=== PATIENT | female | born 1980 | race Caucasian/White ===

== ENCOUNTER 2020-12-22 17:03 | Emergency (ER) | payer BC ==
--- NOTE | 2020-12-22 22:17 | EDM.PDOC ---
ED HPI GENERAL MEDICAL PROBLEM - General Chief Complaint: ENT Problem Stated Complaint: PLUGGED EAR Time Seen by Provider: 12/22/20 21:58 Source of Information: Reports: Patient History Limitations: Reports: No Limitations - History of Present Illness INITIAL COMMENTS - FREE TEXT/NARRATIVE: Patient is a 40-year-old female presents today for right ear being clogged up. States that she has been cleaning it with a Q-tip central use peroxide feels that her ear is clogged and she is having difficulty hearing out of it. Also put a Q-tip and she denies putting any other object in there. She denies going swimming. Denies any drainage from the right ear. She denies any fever chills or other complaints. right ear Pain Score (Numeric/FACES): 3 - Related Data Allergies Allergy/AdvReac Type Severity Reaction Status Date / Time No Known Allergies Allergy Verified 12/22/20 17:31 Home Meds: Home Meds Losartan [Cozaar] 50 mg PO DAILY 12/22/20 [History] Semaglutide [Rybelsus] 7 mg PO DAILY 12/22/20 [History] metFORMIN [Glucophage XR] 4 tab PO DAILY 12/22/20 [History] Past Medical History - Past Health History Medical/Surgical History: Denies Medical/Surgical History Endocrine/Metabolic History: Reports: Diabetes, Type II - Infectious Disease History Infectious Disease History: Reports: None Social & Family History - Family History Family Medical History: No Pertinent Family History - Tobacco Use Tobacco Use Status *Q: Never Tobacco User - Caffeine Use Caffeine Use: Reports: Coffee - Recreational Drug Use Recreational Drug Use: No ED ROS ENT - Review of Systems Review Of Systems: See Below Constitutional: Reports: No Symptoms HEENT: Reports: Ear Pain Respiratory: Reports: No Symptoms Endocrine: Reports: No Symptoms GI/Abdominal: Reports: No Symptoms : Reports: No Symptoms Musculoskeletal: Reports: No Symptoms Skin: Reports: No Symptoms Neurological: Reports: No Symptoms Psychiatric: Reports: No Symptoms Hematologic/Lymphatic: Reports: No Symptoms Immunologic: Reports: No Symptoms ED EXAM, ENT - Physical Exam Exam: See Below Exam Limited By: No Limitations General Appearance: Alert, WD/WN, No Apparent Distress Eye Exam: Bilateral Eye: EOMI, PERRL Ears: Normal External Exam, Other (Q-tip blocking the right canal) Mouth/Throat: Normal Inspection, Normal Gums Head: Atraumatic Respiratory/Chest: No Respiratory Distress Extremities: Normal Inspection Neurological: Alert, Oriented, Normal Cognition, Normal Gait ED ENT PROCEDURES - Foreign Body Removal Indication:: Q-tip cotton in the right ear canal Consent Obtained: Patient Performing Doctor:: Orville Santiago Foreign Body Other Location Comment:: right ear Anesthesia Type: None Complications: No Course - Vital Signs Last Recorded V/S: Last Vital Signs Temp 97.1 F 12/22/20 21:57 Pulse 91 12/22/20 21:57 Resp 20 12/22/20 21:57 BP 167/104 H 12/22/20 21:57 Pulse Ox 98 12/22/20 21:57 - Re-Assessments/Exams Free Text/Narrative Re-Assessment/Exam: 12/22/20 22:33 Remove a good amount of the Q-tip cotton and patient ear also flushed with fluid. Patient be sent home with antibiotic eardrops and follow primary care physician. Departure - Departure Time of Disposition: 22:33 Disposition: Home, Self-Care 01 Condition: Good Clinical Impression: Ear foreign body - Discharge Information *PRESCRIPTION DRUG MONITORING PROGRAM REVIEWED*: Not Applicable *COPY OF PRESCRIPTION DRUG MONITORING REPORT IN PATIENT SILKE: Not Applicable Instructions: Ear Foreign Body, [id number] Referrals: Wiliam Salguero MD [Primary Care Provider] - Forms: ED Department Discharge Additional Instructions: The following information is given to patients seen in the emergency department who are being discharged to home. This information is to outline your options for follow-up care. We provide all patients seen in our emergency department with a follow-up referral. The need for follow-up, as well as the timing and circumstances, are variable depending upon the specifics of your emergency department visit. If you don't have a primary care physician on staff, we will provide you with a referral. We always advise you to contact your personal physician following an emergency department visit to inform them of the circumstance of the visit and for follow-up with them and/or the need for any referrals to a consulting specialist. The emergency department will also refer you to a specialist when appropriate. This referral assures that you have the opportunity for follow-up care with a specialist. All of these measure are taken in an effort to provide you with optimal care, which includes your follow-up. Under all circumstances we always encourage you to contact your private physician who remains a resource for coordinating your care. When calling for follow-up care, please make the office aware that this follow-up is from your recent emergency room visit. If for any reason you are refused follow-up, please contact the [facility] Emergency Department at and asked to speak to the emergency department charge nurse. Please follow up with your primary care physician. If you do not have a primary care physician, see below: Gennaro Peng MD [facility], [address] [place] [address] P: [phone] F: [phone] You were seen today for possible foreign body to your right ear. We were able to remove a good amount of looks like to be cotton from a Q-tip. We also placed you on some antibiotics the patient here for the next few days. Above is the number for an ENT doctor which is a ear nose and throat physician may can further evaluate you. Please give them a call tomorrow for follow-up. If you have any other concerning signs or symptoms please return to the ED. Sepsis Event Note (ED) - Evaluation Sepsis Screening Result: No Definite Risk - Focused Exam Vital Signs: Vital Signs Temp Pulse Resp BP Pulse Ox 12/22/20 21:57 97.1 F 91 20 167/104 H 98 12/22/20 17:29 97 F 100 18 143/97 H 99 - Assessment/Plan Plan: Patient is a 40-year-old female brought in today for clogging of the right ear. On exam we were able to pull out a good amount of Q-tip cotton. Patient states she now feels unclogged and is appear better.
== END 2020-12-22 22:47 | disposition home or self-care (01) ==
LOC: MW.ED 17:03
DX: T16.1XXA Foreign body in right ear, initial encounter (principal); E11.9 Type 2 diabetes mellitus without complications; Z79.84 Long term (current) use of oral hypoglycemic drugs; Z79.899 Other long term (current) drug therapy
CPT/HCPCS: 69200; 99282-25

== ENCOUNTER 2021-06-12 19:12 | Emergency (ER) | payer BC, OTHER ==
[2021-06-12] MEDS ORDERED: Sodium Chloride 0.9% 2.5 ML Syringe FLUSH PRN (19:13)
[2021-06-12] MEDS ORDERED: Sodium Chloride 0.9% 10 ML Syringe FLUSH PRN (19:13)
[2021-06-12] MEDS ORDERED: Morphine 4 MG/ML VIAL IVPUSH ONE (19:55)
[2021-06-12] MEDS ORDERED: Ondansetron 4 MG/2 ML SDV IVPUSH ONE (19:56)
[2021-06-12 20:12] LABS: BLOOD UREA NITROGEN,BUN 5 mg/dL (7.0-18.0); CARBON DIOXIDE,CO2 24.6 mmol/L (21.0-32.0); CHLORIDE,CL 97 mmol/L (98-107); GLUCOSE RANDOM 258 mg/dL (74-106); LIPASE 89 U/L (73-393); POTASSIUM,K 3.6 mmol/L (3.5-5.1); SODIUM,NA 136 mmol/L (136-145)
[2021-06-12] MEDS ORDERED: Iopamidol 755 MG/ML 500 ML Multipack Bottle IVPUSH STA (20:42)
[2021-06-12] MEDS ORDERED: Piperacillin/Tazobactam 3.375 GM in Sodium Chloride 0.9% 50 ML IV ONE (21:14)
[2021-06-12] MEDS ORDERED: Sodium Chloride 0.9% 1,000 ML IV ONE ×2 (21:15→22:30)
[2021-06-12] MEDS ORDERED: HYDROmorphone 1 MG/ML Syringe IVPUSH ONE (23:36)
== END 2021-06-13 00:49 ==
LOC: MW.ED 19:12
DX: K35.33 Acute appendicitis with perforation, localized peritonitis, and gangrene, with abscess (principal); I10 Essential (primary) hypertension; E11.9 Type 2 diabetes mellitus without complications; Z20.822 Contact with and (suspected) exposure to COVID-19; Z79.899 Other long term (current) drug therapy
CPT/HCPCS: 36415; 74177; 80053; 81001; 83605; 83690; 84703; 85025; 87040; 87635; 96374; 96375; 99285; J1170; J2270; J2405; J2543; J7030; Q9967; U0002

== ENCOUNTER 2021-07-16 02:09 | Emergency (ER) | payer OTHER | END 2021-07-16 02:32 | LOC: MW.ED 02:09 | DX: E11.9 Type 2 diabetes mellitus without complications (principal); I10 Essential (primary) hypertension; Z79.899 Other long term (current) drug therapy; Z79.84 Long term (current) use of oral hypoglycemic drugs | CPT/HCPCS: 99282; 99283 ==

== ENCOUNTER 2021-08-08 22:20 | Emergency (ER) | payer OTHER ==
[2021-08-09] MEDS ORDERED: Ondansetron 4 MG/2 ML SDV IVPUSH ONE (00:16)
[2021-08-09] MEDS ORDERED: Ketorolac 30 MG/ML SDV IVPUSH ONE (00:16)
[2021-08-09] MEDS ORDERED: Sodium Chloride 0.9% 1,000 ML IV ONE (00:16)
[2021-08-09 01:27] LABS: CARBON DIOXIDE,CO2 24.9 mmol/L (21.0-32.0); POTASSIUM,K 3.8 mmol/L (3.5-5.1)
== END 2021-08-09 02:17 | disposition home or self-care (01) ==
LOC: MW.ED 22:20
DX: R11.10 Vomiting, unspecified (principal); E11.65 Type 2 diabetes mellitus with hyperglycemia; I10 Essential (primary) hypertension; Z79.899 Other long term (current) drug therapy; Z79.84 Long term (current) use of oral hypoglycemic drugs
CPT/HCPCS: 36415; 71045; 80053; 81001; 81025; 82009; 82947; 83690; 85025; 96374; 96375; 99284; J1885; J2405; J7030